=== PATIENT | female | born 1995 | race Caucasian/White ===

== ENCOUNTER 2018-01-28 12:14 | Emergency (ER) | payer BC ==
--- NOTE | 2018-01-28 12:18 | ER Report ---
History and Physical Time Seen By MD: 12:18 (NAM CHAUHAN MD) HPI/ROS CHIEF COMPLAINT: "Uterine pain" HISTORY OF PRESENT ILLNESS: Patient is a 22-year-old female presents with 3 days of lower pelvic and abdominal pain that is crampy in nature. Patient recently had an IUD placed in September 2017. She reports over the last 3 days pelvic cramping and pain without vaginal bleeding or discharge. She denies any prior pregnancies. She no longer gets her menstrual cycles secondary to her control. She was instructed by her primary care provider to come to the emergency department for evaluation of the location of her IUD. She denies any fevers or chills she denies nausea vomiting or diarrhea. REVIEW OF SYSTEMS: Respiratory: No cough, no dyspnea. Cardiovascular: No chest pain, no palpitations. Gastrointestinal: Lower abdominal pain Musculoskeletal: No back pain. (NAM CHAUHAN MD) Allergies: Coded Allergies: No Known Drug Allergies (Unverified , 01/28/18) Home Meds No Active Prescriptions or Reported Meds Hx Substance Use Disorder: No Hx Alcohol Use: No (NAM CHAUHAN MD) Constitutional Vital Sign - Last 24 Hours 01/28/18 01/28/18 01/28/18 01/28/18 12:14 12:23 12:29 12:30 Temp 98.5 Pulse 78 69 Resp 12 B/P (MAP) 125/89 (101) 125/89 111/78 (89) Pulse Ox 99 97 O2 Delivery Room Air Room Air 01/28/18 01/28/18 01/28/18 01/28/18 12:44 13:00 14:00 14:06 Pulse 76 74 B/P (MAP) 106/67 (80) 110/74 (86) Pulse Ox 98 99 O2 Delivery Room Air Room Air (LAURORA,WALDO V DO) Physical Exam General Appearance: The patient is alert, has no immediate need for airway protection and no current signs of toxicity. Respiratory: Chest is non tender, lungs are clear to auscultation. Cardiac: regular rate and rhythm Gastrointestinal: Abdomen is soft and non tender, no masses, bowel sounds normal. Musculoskeletal: Extremities have full range of motion and are non tender. Pelvic exam: Patient Sirs pollicis standby during a female exam. Speculum exam revealed normal introitus area no evidence of vaginal or vulvar lesions. Patient did have some yellow mucopurulent vaginal discharge noted the cervix appeared normal. Cervical os was identified no IUD string could be visualized or palpated. The patient had no adnexal or cervical motion tenderness. GC and Chlamydia cultures were obtained and sent. (NAM CHAUHAN MD) Medical Decision Making Data Points Laboratory Hematology Test 01/28/18 12:21 01/28/18 13:02 Urine Color Yellow Urine Clarity Clear Urine pH 5.0 pH (4.8-9.5) Urine Specific [place] 1.019 Urine Protein Negative mg/dL (NEGATIVE) Urine Glucose (UA) Negative mg/dL (NEGATIVE) Urine Ketones Negative mg/dL (NEGATIVE) Urine Blood Negative (NEGATIVE) Urine Nitrite Negative (NEGATIVE) Urine Bilirubin Negative (NEGATIVE) Urine Urobilinogen Negative mg/dL (0.2-1.9) Urine Leukocyte Esterase Negative (NEGATIVE) Urine RBC <1 /HPF (0-2/HPF) Urine WBC <1 /HPF (0-5/HPF) Urine Squamous Epithelial Cells Many /LPF (</=FEW) Urine Bacteria Few /HPF (NONE-FEW) Urine Mucus Few /HPF (NONE-FEW) Urine HCG, Qualitative Negative (NEGATIVE) Chemistry Test 01/28/18 12:21 01/28/18 13:02 Urine Color Yellow Urine Clarity Clear Urine pH 5.0 pH (4.8-9.5) Urine Specific [place] 1.019 Urine Protein Negative mg/dL (NEGATIVE) Urine Glucose (UA) Negative mg/dL (NEGATIVE) Urine Ketones Negative mg/dL (NEGATIVE) Urine Blood Negative (NEGATIVE) Urine Nitrite Negative (NEGATIVE) Urine Bilirubin Negative (NEGATIVE) Urine Urobilinogen Negative mg/dL (0.2-1.9) Urine Leukocyte Esterase Negative (NEGATIVE) Urine RBC <1 /HPF (0-2/HPF) Urine WBC <1 /HPF (0-5/HPF) Urine Squamous Epithelial Cells Many /LPF (</=FEW) Urine Bacteria Few /HPF (NONE-FEW) Urine Mucus Few /HPF (NONE-FEW) Urine HCG, Qualitative Negative (NEGATIVE) Urinalysis Test 01/28/18 12:21 Urine Color Yellow Urine Clarity Clear Urine pH 5.0 pH (4.8-9.5) Urine Specific [place] 1.019 Urine Protein Negative mg/dL (NEGATIVE) Urine Glucose (UA) Negative mg/dL (NEGATIVE) Urine Ketones Negative mg/dL (NEGATIVE) Urine Blood Negative (NEGATIVE) Urine Nitrite Negative (NEGATIVE) Urine Bilirubin Negative (NEGATIVE) Urine Urobilinogen Negative mg/dL (0.2-1.9) Urine Leukocyte Esterase Negative (NEGATIVE) Urine RBC <1 /HPF (0-2/HPF) Urine WBC <1 /HPF (0-5/HPF) Urine Squamous Epithelial Cells Many /LPF (</=FEW) Urine Bacteria Few /HPF (NONE-FEW) Urine Mucus Few /HPF (NONE-FEW) Urine HCG, Qualitative Negative (NEGATIVE) (WALDO JARAMILLO DO) ED Course/Re-evaluation ED Course 01/28/2018 12:46:05 pm test is negative we will set up for pelvic exam. If we're able to verify position of the IUD patient would prefer to leave it in place. We will certainly get an ultrasound of the pelvis to look for additional causes of pain. If the IUD string is not located we will do imaging studies to find its location. Decision to Disposition Date: Jan 28, 2018 Decision to Disposition Time: 18:00 (NAM CHAUHAN MD) ED Course 01/28/2018 2:40:44 pm Signed out to me pending US. Pts US shows a simple cyst as well as an IUD may be slighlty low in radha uterus. Spoke with Dr. Colvin, [employer], and he feels he may be able to remove the IUD in his office dispite string not visible. He wants to see her before 9am tomorrow will call the office to schedule. 01/28/2018 2:52:17 pm Office states that they will put her in at 8am tomorrow am. Pt states she is able to go at that time since class is at 930 Decision to Disposition Date: Jan 28, 2018 Decision to Disposition Time: 14:52 (WALDO JARAMILLO DO) Depart Departure Latest Vital Signs Vital Signs Date Time Temp Pulse Resp B/P (MAP) Pulse Ox O2 Delivery O2 Flow Rate FiO2 01/28/18 14:06 74 99 Room Air 01/28/18 14:00 110/74 (86) 01/28/18 12:29 98.5 12 (WALDO JARAMILLO DO) Impression: Primary Impression: IUD complication Additional Impression: Simple ovarian cyst Condition: Condition Unchanged Disposition: HOME OR SELF-CARE Referrals: IAN COLVIN MD tomorrow at 8am New Scripts No Active Prescriptions or Reported Meds Patient Instructions: Ovarian Cyst (ED) Additional Instructions: Your ultrasound today shows a simple ovarian cyst on the right a well as your IUD is slightly low in your uterus. You have an appointment with Dr. Colvin tomorrow at 8am to have your IUD removed. Motrin (advil,ibuprofen) 600mg every 6 hours as needed for cramping and pain. Problem Qualifiers Primary Impression: IUD complication Device complication type: unspecified Encounter type: initial encounter Qualified Codes: T83.9XXA - Unspecified complication of genitourinary prosthetic device, implant and graft, initial encounter NAM CHAUHAN MD Jan 28, 2018 12:18 WALDO JARAMILLO DO Jan 28, 2018 14:55
--- NOTE | 2018-01-28 14:25 | RADIOLOGY IMAGING REPORT ---
FACILITY: [facility] [place] PATIENT NAME: Mariam Odonnell : 1995 MR: [id number] V: [id number] EXAM DATE: ORDERING PHYSICIAN: NAM CHAUHAN TECHNOLOGIST: Location: [facility] Patient: Mariam Odonnell : 1995 Visit/Account:[id number] Date of Sevice: 01/28/2018 Pelvic ultrasound HISTORY: Pelvic pain. Unable to find IUD string. COMPARISON: None available. Findings: Standard endovaginal pelvic ultrasound with color flow and spectral analysis. 3-D imaging was performed by the technologist according to protocols developed by the radiologists an d the facility radiology staff. [employer] images are stored on PACS. Uterus: Uterus measurement: 6.3 x 3.1 x 2.9 cm Endometrium measurement: 4 mm The IUD may be slightly low in the uterus. Possible small polyp or blood clot adjacent to the inferio r aspect of the IUD. Small nabothian cysts. Adnexa: Right ovary: 2.7 x 2.6 x 2.4 cm Left ovary: 2.7 x 2.1 x 1.6 cm 2.2 x 2.1 x 1.9 cm simple cyst in the right ovary. No suspicious mass. Normal blood flow. Free fluid: Mild free fluid. Urinary bladder: Empty IMPRESSION: 1. The IUD may be slightly low in the uterus. Possible small polyp or blood clot adjacent to the infe rior aspect of the IUD. 2. Mild free fluid, possibly physiologic. 3. Small simple cyst in the right ovary. Report Dictated By: Mika Cooper MD at 01/28/2018 2:15 PM Report E-Signed By: Mika Cooper MD at 01/28/2018 2:20 PM WSN:[id number]
[2018-01-28] MEDS ORDERED: IBUPROFEN 600 MG TAB PO ONE (14:50)
[2018-01-28 15:00] VITALS: BP 101/84
== END 2018-01-28 15:05 | disposition home or self-care (01) ==
LOC: ER 12:21
DX: T83.9XXA Unspecified complication of genitourinary prosthetic device, implant and graft, initial encounter (principal); N83.291 Other ovarian cyst, right side
CPT/HCPCS: 76830; 81001; 81025; 87491; 87591; 99284